=== PATIENT | female | born 1965 | race Caucasian/White ===

== ENCOUNTER 2018-08-22 13:58 | Emergency (ER) | payer OTHER ==
[~2018-08-22] VITALS: Ht 160 cm; Wt 74.4 kg
[2018-08-22 14:29] VITALS: BP 134/93; Ht 160 cm; Wt 74.4 kg
== END 2018-08-22 16:58 | disposition left against medical advice (07) ==
LOC: ED 13:58
DX: Z53.21 Procedure and treatment not carried out due to patient leaving prior to being seen by health care provider (principal)
CPT/HCPCS: 82962